=== PATIENT | female | born 2005 | race Caucasian/White ===

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

== ENCOUNTER → 2024-04-11 09:07 | Outpatient (BNVA) | payer BC, SELFPAY | PROVIDERS: PCP Family Medicine; Visit Provider Nurse Practitioner | DX: R07.9 Chest pain, unspecified (principal) | CPT/HCPCS: 93005 ==

== ENCOUNTER → 2024-05-21 09:24 | Outpatient (BNVA) | payer BC, SELFPAY | PROVIDERS: PCP Family Medicine; Visit Provider Family Medicine | DX: I45.10 Unspecified right bundle-branch block (principal); R30.0 Dysuria | CPT/HCPCS: 81000; 87086; 87491; 87591; 93005 ==

== ENCOUNTER 2024-06-19 10:08 | Outpatient (CLI) | payer BC, MEDICAID, SELFPAY ==
--- NOTE | 2024-06-19 10:30 | USCV_ITS ---
Camille Muñoz Age: 18 Gender: F : 2005 Exam Date: 06/19/2024 10:54 Ordering Phys: Megan Hazel MD Technologist: CT Exam Location: [facility] [place] Indication: BP: 120 / 80 HR: 63 Rhythm: Sinus Technical Quality: Technically difficult study, poor windowa MEASUREMENTS (Male / Female) Normal Values 2D ECHO LVOT Diameter 1.9 cm LV Ejection Fraction MOD 4C 58.1 % LV Ejection Fraction MOD 2C 56.8 % LV Ejection Fraction 2C AL 56.4 % LA Diameter 3.1 cm RA Systolic Volume 4C AL 30.3 ml RA Systolic Volume 4C MOD 29.1 ml IVC Diameter 1.2 cm M-MODE LA Ao Ratio MM 1.1 AV Cusp Separation MM 1.5 cm DOPPLER AV Peak Velocity 127.0 cm/s LVOT Peak Velocity 96.0 cm/s AV Area Cont Eq vti 2.0 cm squared AV Area Cont Eq pk 2.1 cm squared MV Peak Velocity 96.0 cm/s MV Area PHT 6.1 cm squared Mitral E to A Ratio 1.6 TV Peak E Velocity 72.0 cm/s PV Peak Velocity 86.0 cm/s FINDINGS Left Ventricle Normal left ventricular size and systolic function, EF 57%. No regional wall motion abnormalities. . Right Ventricle Normal right ventricular size and systolic function. Right Atrium The right atrium is normal in size. Left Atrium The left atrium is normal in size. Mitral Valve Structurally normal mitral valve. Aortic Valve Structurally normal trileaflet aortic valve. Tricuspid Valve Structurally normal tricuspid valve. Pulmonic Valve Pulmonic valve not well visualized. Pericardium Normal pericardium without effusion. Aorta Normal ascending aorta dimension. IVC The inferior vena cava appears normal. CONCLUSIONS Normal left ventricular size and systolic function, EF 57%. No regional wall motion abnormalities. . Normal cardiac valves. Normao chamber sizes. There is no pericardial effusion. There are no intracardiac masses. There are no prior echocardiogram studies to compare. Dr Maxim Howard MD FACC (Electronically Signed) Final Date: 22 June 2024 10:34 S
--- NOTE | 2024-06-19 10:30 | US_ITS ---
WS: [id number] RENAL ULTRASOUND URINARY BLADDER ULTRASOUND HISTORY: R35.0 - Frequency of micturition COMPARISON: None available. TECHNIQUE: 2-D and color Doppler imaging of the kidney submitted. Right kidney: 8.9 cm x 5.4 cm x 4.2 cm. Renal cortex: 1.2 cm. Normal echogenicity with no hydronephrosis or mass. Low normal size kidney. Left kidney: 8.2 cm x 4.5 cm x 5.3 cm. Renal cortex: 1.4 cm. Normal echogenicity with no hydronephrosis or mass. Kidney is measuring small. Aorta: Normal. Urinary Bladder: Normal distention. Prevoid volume: 500 mL. Post void volume: 34 mL. US/US renal BI with PV bladder IMPRESSION: 1. Kidneys are measuring low normal to slight atrophy. Normal length is 10.2 c m for a patient of this age. No cortical thinning. 2. No significant post void residual.
== END 2024-06-19 10:09 | disposition home or self-care (01) ==
LOC: RAD 10:08
PROVIDERS: PCP Family Medicine; Visit Provider Family Medicine
DX: R35.0 Frequency of micturition (principal); R39.198 Other difficulties with micturition; R07.9 Chest pain, unspecified; R93.421 Abnormal radiologic findings on diagnostic imaging of right kidney; R93.422 Abnormal radiologic findings on diagnostic imaging of left kidney
CPT/HCPCS: 76770; 76857; 93306

== ENCOUNTER → 2024-10-03 08:40 | Outpatient (BNVA) | payer OTHER, SELFPAY | PROVIDERS: PCP Family Medicine; Visit Provider Nurse Practitioner Women's Health | DX: R30.0 Dysuria (principal) | CPT/HCPCS: 81000; 87086 ==

== ENCOUNTER → 2024-10-16 11:05 | Outpatient (BNVA) | payer OTHER, SELFPAY | PROVIDERS: PCP Family Medicine; Visit Provider Nurse Practitioner Women's Health | DX: N94.10 Unspecified dyspareunia (principal); Q51.3 Bicornate uterus | CPT/HCPCS: 76830 ==

== ENCOUNTER → 2025-04-01 11:11 | Outpatient (BNVA) | payer OTHER, SELFPAY | PROVIDERS: PCP Family Medicine; Visit Provider Nurse Practitioner Women's Health | DX: Z30.011 Encounter for initial prescription of contraceptive pills (principal) | CPT/HCPCS: 81025 ==

== ENCOUNTER 2025-04-21 08:16 | Emergency (ER) | payer OTHER, BC, MEDICAID, SELFPAY ==
--- NOTE | 2025-04-21 08:18 | XRR_ITS ---
PROCEDURE INFORMATION: Exam: XR Right Shoulder Exam date and time: 04/21/2025 8:47 AM Age: 19 years old Clinical indication: Pain; Shoulder; Right; Additional info: RT anterior shoulder/chest pain; No known injury; No cardiac HX TECHNIQUE: Imaging protocol: Radiologic exam of the right shoulder. Views: 2 or more views. COMPARISON: CR (CHEST, ) 04/21/2025 8:47 AM FINDINGS: Bones/joints: There is significant dextroscoliosis of the thoracic spine. Otherwise bony structures are normal in appearance. Joint spaces are normal. Soft tissues: Normal. XR/XR shoulder RT min 2V* [id number] IMPRESSION: No acute abnormality. Significant dextroscoliosis of the thoracic spine..
[2025-04-21 08:26] VITALS: BP 112/86; PULSE 81; RESP 16; TEMP 36.8; O2SAT 99; BMI 21.4
--- NOTE | 2025-04-21 08:29 | ECG_ITS ---
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 Measurements Intervals [place] Rate: 64 P: 39 AL: 136 QRS: 38 QRSD: 105 T: 27 QT: 413 QTc: 427 Interpretive Statements SINUS RHYTHM LOW QRS VOLTAGE IN PRECORDIAL LEADS [QRS DEFLECTION < 1.0 mV IN CHEST LEADS] POSSIBLE RIGHT VENTRICULAR CONDUCTION DELAY [RSR (QR) IN V1/V2] No previous ECG available for comparison Electronically Signed On 04-21-2025 16:50:40 [employer] by Efrain Mathis M.D. [email or web address]
--- NOTE | 2025-04-21 08:29 | XRR_ITS ---
PROCEDURE INFORMATION: Exam: XR Chest Exam date and time: 04/21/2025 8:47 AM Age: 19 years old Clinical indication: Pain; Chest pressure; Additional info: RT anterior shoulder/chest pain; No known injury; No cardiac HX TECHNIQUE: Imaging protocol: Radiologic exam of the chest. Views: 1 view. COMPARISON: CR XR shoulder RT min 2V* [id number] 04/21/2025 8:47 AM FINDINGS: Lungs: Unremarkable. No consolidation. Pleural spaces: Unremarkable. No pleural effusion. No pneumothorax. Heart/Mediastinum: Unremarkable. No cardiomegaly. Bones/joints: Significant dextroscoliosis of the thoracic spine. XR/XR chest 1V portable [id number] IMPRESSION: No acute abnormality identified. Significant dextroscoliosis of the thoracic spine.
--- NOTE | 2025-04-21 08:30 | W.ED.EXTPRO ---
HPI - Extremity Problem General: Chief complaint: Extremity Injury, Upper Stated complaint: R shoulder pain Time Seen by Provider: 04/21/25 08:26 Source: patient Mode of arrival: ambulatory Limitations: no limitations History of Present Illness: 19-year-old female states been having some right shoulder pain over the last 2 days. Pain seems to be intermittent in nature denies any pain currently. States that it is worse with movement at times and sometimes with deep breathing she denies any shortness of breath denies any cough or fever. Related Data Previous Rx's ?Medication ?Instructions ?Recorded estradiol 0.01% (0.1 mg/gram) 1 g vaginal .twice weekly #42.5 10/03/24 vaginal cream grams Allergies Allergy/AdvReac Type Severity Reaction Status Date / Time No Known Allergies Allergy Verified 04/01/25 10:55 [facility] ED PFSH: Medical History (Updated 04/21/25 @ 09:12 by Willard Dos Santos MD) Aggressive behavior Suicide attempt No pertinent past medical history neghx: htn,dm,thyroid,dvt/pe PCP: Dr. Hazel Asthma PTSD (post-traumatic stress disorder) Anxiety Depression Surgical History No pertinent past surgical history Family History Grandmother Diabetes Maternal and Paternal Stroke Paternal Grandfather Diabetes Maternal and Paternal Heart disease Paternal Hypertension Paternal Denies family history of Colon cancer Ovarian cancer Hypercholesteremia Breast cancer Uterine cancer Thyroid disease Social History Smoking and tobacco/nicotine status: never used tobacco/nicotine Physical Exam Const: COMMON NORMALS: no acute distress, patient oriented x3 and healthy appearing HENMT: COMMON NORMALS: normocephalic and atraumatic HEAD & SCALP: normocephalic and atraumatic Neck/C-Spine: COMMON NORMALS: full ROM and supple Chest: COMMONS NORMALS: normal inspection of the chest and normal palpation of entire chest wall Resp: COMMON NORMALS: normal respiratory effort, No retractions, No use of accessory muscles and clear to auscultation bilaterally AUSCULTATION: clear to auscultation bilaterally Cardio: COMMON NORMALS: regular rate, regular rhythm and No murmurs present (Cardio) RATE: regular rate RHYTHM: regular rhythm Extremity: COMMON NORMALS: normal to inspection and full ROM Neuro: COMMON NORMALS: patient oriented x3, moves all extremities and no focal motor deficits Psych: COMMON NORMALS: mental status grossly normal, Normal thought process present and cooperative THOUGHT PROCESS: Normal thought process present Skin: COMMON NORMALS: no rashes or lesions noted and no wounds GENERAL SKIN EXAM: no rashes or lesions noted Course Vital Signs: Vital signs: Vital Signs Temperature 98.2 F 04/21/25 08:26 Pulse Rate 81 04/21/25 08:26 Respiratory Rate 16 04/21/25 08:26 Blood Pressure 112/86 04/21/25 08:26 Pulse Oximetry 99 04/21/25 08:26 Oxygen Delivery Me thod Room Air 04/21/25 08:26 MDM - Extremity (Nontraumatic) Medical Decision Making 19-year-old female presents here with right shoulder pain has been intermittent nature. Did review her chest x-ray and x-ray of her right shoulder interpreted by me no neither showed any acute abnormalities. No signs of pneumothorax. Pain is likely muscular in nature she has had some pain with inspiration but she is not tachycardic she has no signs of pulm emboli and its intermittent pain. She has been well-appearing here she stable for discharge follow-up PCP return if worsening. EKG interpreted by me at 0841 normal sinus rhythm heart rate [address] elevation QRS 105 QTc 422 Medical Records I reviewed the patient's medical records. Lab Data I reviewed the patient's lab results. All radiology interpretation(s) finalized by discharge Discharge Plan Discharge Patient Disposition: Home Clinical Impression: Pain in right shoulder Condition: Stable Prescriptions: No Action estradiol 0.01 % (0.1 mg/gram) cream 1 g vaginal .twice weekly Qty: 42.5 3RF Rx Instructions: at bedtime, space days out Discharge Orders: Discharge ED (Routine); Ordered 04/21/25 Ordered By: Willard Dos Santos Referrals: Megan Hazel MD [Primary Care Provider, Family Practice] - 4-7 days Discharge Diet: Advance as tolerated Discharge Activity: Resume usual activity Patient Instructions: Shoulder Pain (ED) Print Language: Greek Coding Level of Care Code ED Patient Care Secretary for Taylorg Rozina
[2025-04-21 09:14] VITALS: BP 106/74; PULSE 69; O2SAT 97
== END 2025-04-21 09:15 | disposition home or self-care (01) ==
PROVIDERS: Emergency Provider Emergency Medicine; PCP Family Medicine
DX: M25.511 Pain in right shoulder (principal)
CPT/HCPCS: 71045; 73030; 93005; 99284; J9999

== ENCOUNTER 2025-04-25 10:01 | Outpatient (CLI) | payer OTHER, BC, MEDICAID, SELFPAY | END 2025-04-25 10:02 | disposition home or self-care (01) | LOC: LAB 04-26 07:14 | PROVIDERS: PCP Family Medicine; Visit Provider Nurse Practitioner Women's Health | DX: Z30.014 Encounter for initial prescription of intrauterine contraceptive device (principal) | CPT/HCPCS: 81025 ==